=== PATIENT | female | born 1970 | race Caucasian/White ===

== ENCOUNTER 2018-03-18 07:26 | Inpatient (IN) | payer OTHER ==
[2018-03-07 09:15] LABS: ABSOLUTE LYMPHOCYTES 1.4 thou/uL (0.8-5.3); ABSOLUTE MONOCYTES 0.3 thou/uL (0.0-1.2); ABSOLUTE NEUTROPHILS 6.3 thou/uL (1.6-8.1); BASOPHILS 0.3 %; EOSINOPHILS 0.3 %; HEMOGLOBIN 12.7 gm/dL (12.0-15.0); LYMPHOCYTES 17.3 %; MCH 28.5 pg (26.0-34.0); MCHC 33.3 g/dL (28.0-37.0); MCV 85.7 fL (80.0-100.0); MONOCYTES 4.2 %; MPV 10.1 fl. (7.2-11.1); NUCLEATED RBCS 0 /100WBC; PLATELET COUNT* 295 thou/uL (150-400); POLYS 77.9 %; RBC 4.43 mil/uL (4.20-5.00); RDW-CV 20.4 % (10.5-14.5); WBC 8.2 thou/uL (4.0-11.0)
[2018-03-07 09:28] LABS: APTT 27.3 Seconds (25.0-31.3); PROTIME 10.3 Seconds (9.20-11.50)
[2018-03-07 09:54] LABS: ALBUMIN 4.1 g/dL (3.4-5.0); CALCIUM 9.3 mg/dL (8.5-10.1); CREATININE 0.9 mg/dL (0.6-1.3); TOTAL BILIRUBIN 0.3 mg/dL (<0.1-1.0); TOTAL PROTEIN 7.7 g/dL (6.4-8.2)
[2018-03-07 10:05] LABS: ANISOCYTOSIS 1+; PLATELET ESTIMATE ADEQUATE; POIKILOCYTOSIS 1+
[2018-03-07 10:19] LABS: ESR (SEDRATE) 10 mm/hr (0-20)
--- NOTE | 2018-03-07 16:46 | EKG ---
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
[2018-03-08 02:12] LABS: GLYCOHEMOGLOBIN (HGB A1C) 4.9 % (4.8-5.6)
[~2018-03-18] VITALS: Ht 162.6 cm; Wt 90.7 kg
[~2018-03-18 07:26] MED LIST: [UNRECOGNIZED DRUG - OTHER] PO
[2018-03-18 08:00] VITALS: BP 120/71
[2018-03-18 20:20] VITALS: BP 132/75
[2018-03-19] VITALS: BP 127/59
[2018-03-19 04:00] VITALS: BP 124/64
[2018-03-19 04:08] LABS: HEMOGLOBIN 9.3 gm/dL (12.0-15.0)
[2018-03-19 08:15] VITALS: BP 111/61
[2018-03-19] MEDS ORDERED: OXYCODONE HCL10 MG PO (13:28)
[2018-03-19] MEDS ORDERED: ELIQUIS2.5 MG PO (13:29)
[2018-03-19 13:30] VITALS: BP 111/61
[2018-03-19 16:05] VITALS: BP 111/61
--- NOTE | 2018-03-26 13:12 | OP ---
[address] [address] OPERATIVE REPORT Name: JOSHUA MAS Room: [address] M.R.#: [id number] Admission: 03/18/18 Attend Phys: Diana Tsang Discharge: 03/19/18 Date of : 74 Report #: [id number] THIS REPORT FOR: //name// CC: FANTA PACK Physician staff Migue Heredia DICTATED BY: Mike Sung DO DATE OF SERVICE: 03/18/2018 PREOPERATIVE DIAGNOSIS: Right knee advanced degenerative joint disease with significant flexion contracture and retained deep orthopedic hardware. POSTOPERATIVE DIAGNOSIS: Right knee advanced degenerative joint disease with significant flexion contracture and retained deep orthopedic hardware. PROCEDURE: Complex right total knee arthroplasty with removal of deep orthopedic hardware utilizing the [employer] Vanguard total knee system with the following components: 1. Size 67 fixed cruciate tibial plate. 2. A 65 mm CR right femoral component. 3. 10 mm tibial bearing. 4. 28 mm asymmetric patella. SURGEON: Migue Richard DO ASSISTANTS: Mike Sung DO and Gary Humphrey DO ESTIMATED BLOOD LOSS: 150 mL. DRAINS: None. ANESTHESIA: General with local anesthetic. ANTIBIOTICS: 2 grams Ancef IV preoperatively. SPECIMENS: None. COMPLICATIONS: None. DISPOSITION: Stable to PACU and will be admitted to the hospital for standard postoperative care. INDICATION FOR PROCEDURE: The patient is a pleasant 47-year-old female who was [address] [address] OPERATIVE REPORT Name: JOSHUA MAS Room: [address] M.R.#: [id number] Admission: 03/18/18 Attend Phys: Diana Tsang Discharge: 03/19/18 Date of : 74 Report #: [id number] seen multiple times in [facility] with complaints of chronic right knee pain. She has significant history of previous orthopedic surgeries to her right knee consisting of an ACL reconstruction and an osteochondral allograft with retained deep orthopedic hardware. She had advanced degenerative joint disease changes on radiographs and was recommended for right total knee arthroplasty. Risks, benefits, complications, indications and alternative treatments were discussed and the patient wished to proceed with surgery today. DESCRIPTION OF PROCEDURE: The patient was seen in preoperative holding area. Correct operative site, right knee was initialed. The patient was taken back to operating suite, placed in supine position on the operating table, given benefit of general anesthetic. A well-padded tourniquet was placed to the right upper thigh. Right lower extremity was then prepped and draped in typical fashion. Surgery began with a timeout, identifying correct patient, correct procedure, correct operative site, preoperative antibiotics and correct performing surgeon. Next, standard anterior midline incision was made directly overlying the right knee utilizing old previous scar as a line for our incision. Incision was taken down sharply to prepatellar fascia. Standard medial parapatellar arthrotomy was performed with a new 10 blade scalpel. Knee was flexed. Patella was everted. Multiple small screws were removed from the femur as well as multiple jamar from the proximal tibia. Next, intramedullary femoral drill was introduced into the intramedullary canal of the distal femur, followed by the distal femoral cutting guide. Extra resection of 12 mm was taken from the distal femur. Next, attention was turned to the proximal tibia cut. Using extramedullary tibial guide, it was aligned in the normal fashion over the medial third of the tibial tubercle, tibial crest, center of the talus, second metatarsal. A cutting block was pinned into place with a 10 mm resection off the high lateral side. A reciprocating saw was utilized to perform a proximal tibia cut. Next, a femur was sized in the normal fashion using the AP sizer. A 4-in-1 cutting block was impacted in place. Anterior, posterior and anterior-posterior chamfer cuts were performed in the normal fashion. Menisci were excised in a normal fashion utilizing electrocautery. Trial tibia and trial femoral components were impacted into place followed by 10-mm polyethylene spacer. Knee was taken through range of motion and felt to be stable to varus valgus stress in full extension, full flexion and good mid flexion stability. Next, the patella was resurfaced utilizing a reciprocating saw in a normal fashion and a trial patellar component was drilled in place in normal fashion. Next, trial components were removed. All bony surfaces were thoroughly irrigated. Final components were cemented into place in the normal fashion, first starting with the tibia followed by the femur and then the patella. A trial 10-mm polyethylene spacer was inserted. I felt that this was stable throughout range of motion. Therefore, we removed all remaining excess cement. I placed our final 10-mm polyethylene spacer and locked it with the bar in normal fashion. The wound was thoroughly irrigated. The capsule was closed in a [id number] fashion with a few #1 Vicryl sutures followed by running barbed #1 [place] [address] OPERATIVE REPORT Name: JOSHUA MAS Room: [address] M.R.#: [id number] Admission: 03/18/18 Attend Phys: Diana Tsang Discharge: 03/19/18 Date of : 74 Report #: [id number] suture. Subcutaneous tissues were closed in a simple inverted fashion with 2-0 Monocryl suture. A running 3-0 Stratafix was applied to the subcuticular layer. Dermabond was applied to the skin glue. Standard dressings were applied consisting of Mepilex and YARITZA hose. The patient was weaned from general anesthetic, transferred in stable condition to the PACU. All sponge and needle counts were correct x 2. <ELECTRONICALLY SIGNED> By: Moy Hylton DO 03/26/18 1312 [id number] Richard DO /yessica
== END 2018-03-19 14:30 | disposition home or self-care (01) | DRG 467 ==
LOC: M.SUR 07:26 → M.TBA 13:12 → M.ORTHSURG 13:12 → M.SUR 13:42 → M.ORTHSURG 14:48 → M.SUR 16:49 → M.ORTHSURG 03-19 14:30
PROVIDERS: Orthopaedic Surgery; ADMIT Internal Medicine
PROC: 0SRC0J9 Replacement of Right Knee Joint with Synthetic Substitute, Cemented, Open Approach (ICD-10-PCS; principal; 2018-03-18)
PROC: 0SPC0JZ Removal of Synthetic Substitute from Right Knee Joint, Open Approach (ICD-10-PCS; principal; 2018-03-18)
DX: M17.11 Unilateral primary osteoarthritis, right knee (principal); D62 Acute posthemorrhagic anemia; M24.561 Contracture, right knee; Z88.8 Allergy status to other drugs, medicaments and biological substances; Z23 Encounter for immunization